=== PATIENT | male | born 1995 | race Caucasian/White ===

== ENCOUNTER 2020-06-06 19:02 | Emergency (ER) | payer MEDICAID ==
[~2020-06-06] VITALS: Ht 165.1 cm; Wt 104.5 kg
[2020-06-06 19:30] VITALS: BP 129/81
[2020-06-06] MEDS ORDERED: FLUORESCEIN SODIUM 1 MG STRIP OD ONE (21:45)
[2020-06-06] MEDS ORDERED: PROPARACAINE HCL 0.5% 15 ML OPHTHALMIC SOLUTION OU ONE (21:45)
[2020-06-06] MEDS ORDERED: ERYTHROMYCIN 0.5% 3.5 GM TUBE OPHTHALMIC OINTMENT OS ONE (22:00)
== END 2020-06-06 22:18 | disposition home or self-care (01) ==
LOC: EMS 19:02
DX: S05.02XA Injury of conjunctiva and corneal abrasion without foreign body, left eye, initial encounter (principal); X58.XXXA Exposure to other specified factors, initial encounter; Y93.89 Activity, other specified; Y92.89 Other specified places as the place of occurrence of the external cause; Y99.8 Other external cause status
CPT/HCPCS: 99283